=== PATIENT | male | born 1965 | race Caucasian/White ===

== ENCOUNTER 2023-03-30 00:54 | Emergency (ER) | payer OTHER ==
[~2023-03-30] VITALS: Ht 170 cm; Wt 88.4 kg
[2023-03-30 01:10] VITALS: BP 140/70
[2023-03-30] MEDS ORDERED: morphine INJ 10 MG/ML 1ML (SYR OR VIAL) IM STA (01:38)
--- NOTE | 2023-03-30 02:56 | ED Back Pain ---
General Chief Complaint: Back Problems Stated Complaint: BACK PAIN Source of Information: Patient, Caregiver Exam Limitations: No Limitations History of Present Illness Date Seen by Provider: Mar 30, 2023 Time Seen by Provider: 01:23 Initial Comments 58-year-old male patient with history of chronic back pain and multiple back surgery presented to ER with complaining of a fall and low back pain. Patient stated he slipped on hardwood floor at his home around 1900 and injured his back. Patient rated his pain as a sharp pain without radiation and he stated his did not have loss of consciousness or other injuries. Patient complaining of numbness of left lower extremity after the injury but he stated he has had nu mbness of extremity intermittently and no new changes tonight. Patient stated he did not get any pain medication at home and denies urine and bowel incontinence, fever and chills, chest pain and shortness of breath. Patient is a resident of [place] and stated he did not like to go to the hospital over there and decided to come to this emergency. Allergies and Home Medications Allergies Coded Allergies: Penicillins (Unverified Allergy, Unknown, 03/30/23) meperidine (Unverified Allergy, Unknown, 03/30/23) Patient Home Medication List Home Medication List Reviewed: Yes Review of Systems Constitutional: no symptoms reported EENTM: no symptoms reported Cardiovascular: no symptoms reported Gastrointestinal: no symptoms reported Genitourinary: no symptoms reported Musculoskeletal: see HPI Skin: no symptoms reported Psychiatric/Neurological: See HPI All Other Systems Reviewed Negative Unless Noted: Yes Physical Exam Vital Signs Capillary Refill : Height, Weight, BMI Height: '" Weight: lbs. oz. kg; BMI Method: General Appearance: Anxious HEENT: PERRL/EOMI Neck: Full Range of Motion, Normal Inspection Cardiovascular: Regular Rate, Rhythm, No Edema, No Gallop, Systolic Murmur Respiratory: Chest Non Tender, Lungs Clear, Normal Breath Sounds, No Accessory Muscle Use, No Respiratory Distress Gastrointestinal: Normal Bowel Sounds, Soft Back: Normal Inspection, No CVA Tenderness, No Vertebral Tenderness, Decreased Range of Motion Extremity: Normal Capillary Refill, Normal Inspection, Normal Range of Motion, Non Tender Neurologic/Psychiatric: Alert, Oriented x3, Other (Subjective decreased sens ation in right lower extremity, patient reported left lower extremity numbness at arrival to ER.) Progress/Results/Core Measures Results/Orders My Orders Orders - RICARDO CHRISTIE MD Morphine Injection (Morphine Injection (03/30/23 01:38) Ct Thoracic/Lumbar Spine Wo (03/30/23 01:33) Progress Progress Note : Progress Note Patient with history of chronic back pain and surgeries complaining of a fall 4 hours prior to her arrival to ER and drove from [place] to here with his caregiver because did not like the hospital in [place]. Patient rated his pain as a severe pain but did not take any pain medication at home. Patient also complaining of numbness on his left leg at arrival to ER but during exam complaining of right-sided numbness. Patient had drug-seeking behavior. CT thoracic and lumbar spine was unremarkable. Patient treated with 2 mg of morphine and he stated his pain improved. Patient had history of lumbar stimulator and has pain management care and advised to follow-up with his pain management and continue home pain medication and apply ice on his back. Diagnostic Imaging Diagonstic Imaging: CT Plain Films/CT/US/NM/MRI: other (CT thoracic and lumbar spine) Comments CT thoracic and lumbar spine interpreted by radiologist and reviewed by me and did not show acute finding. Reviewed: Reviewed [facility] Study Departure Impression Primary Impression: Back strain Qualified Codes: S39.012D - Strain of muscle, fascia and tendon of lower back, subsequent encounter Additional Impression: Fall at home Qualified Codes: W19.XXXA - Unspecified fall, initial encounter; Y92.009 - Unspecified place in unspecified non-institutional (private) residence as the place of occurrence of the external cause Disposition: 01 HOME, SELF-CARE Condition: Improved Departure-Patient Inst. Decision time for Depature: 02:55 Referrals: ANI ALVARADO MD (PCP/Family) Primary Care Physician Patient Instructions: Back Muscle Strain (DC), Preventing falls in adults, Low Back Pain ED Add. Discharge Instructions: Apply ice on your back Follow-up with your pain management regarding chronic back pain Continue home medication Return to ER as needed All discharge instructions reviewed with patient and/or family. Voiced understanding. RICARDO CHRISTIE MD Mar 30, 2023 02:55
--- NOTE | 2023-03-30 08:18 | Diagnostic Imaging Report ---
CLINICAL INDICATION: Patient status post fall, history of trauma and spinal surgery. Exam: Axial CT scan of the thoracic and lumbar spine performed without IV contrast. Sagittal and coronal reformations were performed. Bone and soft tissue windows were created. Auto Exposure Controls were utilized during the CT exam to meet ALARA standards for radiation dose reduction. Comparison: None. Findings: There is no acute thoracic or lumbar fracture or dislocation. Thoracic and lumbar spine have normal alignment. The visualized extrathoracic, and lumbar soft tissue structures are unremarkable. There are degenerative spurs involving the thoracic spine. There are multilevel lumbar spine degenerative spurs and facet arthropathy. There is L3-L4 posterior spinal fusion hardware with solid bony bridging/fusion seen at the L3-S1 levels. Neurostimulator electrode is seen overlying the posterior back region and entering the T11-T12 interlaminar region. 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 Impression: There is no acute thoracic spine and lumbar spine fracture or dislocation. I agree with [facility] report. Dictated by: Dictated on workstation # [id number]
== END 2023-03-30 03:11 | disposition home or self-care (01) ==
LOC: ER FS 00:59
DX: S39.012A Strain of muscle, fascia and tendon of lower back, initial encounter (principal); Z28.310 Unvaccinated for COVID-19; Z98.890 Other specified postprocedural states; W18.09XA Striking against other object with subsequent fall, initial encounter; Y92.009 Unspecified place in unspecified non-institutional (private) residence as the place of occurrence of the external cause
CPT/HCPCS: 72128; 72131